=== PATIENT | female | born 1935 | race Caucasian/White ===

== ENCOUNTER 2022-05-31 12:03 | Emergency (ER) | payer OTHER ==
[~2022-05-31] VITALS: Ht 160 cm; Wt 40.4 kg
--- NOTE | 2022-05-31 12:05 | NUR ---
87/F BIBA from [facility] [place] for SOB and cough prior to arrival. Per EMS, patient cyanotic and cough up "thick green sputum." Patient noted with SOB after coughing episode. Denies SOB at this time; SpO2 98% on 2L via NC by EMS. SpO2 triage 99% on room air. Patient denies chest pain, fever, chills, headache. night monitor and gown in place. Bed locked in lowest position, side rails x 1. PMH: HLD, HTN, dementia NKDA
--- NOTE | 2022-05-31 12:05 | NUR ---
BIBA to bed 10
[2022-05-31 12:12] VITALS: BP 115/59
--- NOTE | 2022-05-31 12:41 | NUR ---
RAD at bedside
[2022-05-31] MEDS ORDERED: levoFLOXacin 750 MG TAB PO ONE (13:40)
[2022-05-31] MEDS ORDERED: LEVO750T75 PO (13:44)
--- NOTE | 2022-05-31 14:02 | NUR ---
ETA for transportation back home 1730.
--- NOTE | 2022-05-31 14:13 | NUR ---
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 Bed locked in lowest position, side rails x 2 for patient safety. Patient noted with one coughing episode. NAD. SpO2 98% on room air.
--- NOTE | 2022-05-31 15:20 | NUR ---
Patient states dinner meal around this time; tuna salad sandwich provided per request. Patient sitting upright in bed. sugar mixer in place.
--- NOTE | 2022-05-31 16:35 | NUR ---
Patient with bowel movement; bedside commode placed and patient using commode at this time. Wipes provided.
[2022-05-31 16:56] VITALS: BP 103/71
--- NOTE | 2022-05-31 17:42 | NUR ---
Patient resting in position of comfort with ekg monitor in place. SpO2 98% on room air. Bed locked in lowest position, side rails x 2 for pt safety. All needs met.
--- NOTE | 2022-05-31 18:06 | NUR ---
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 ETA and status given
--- NOTE | 2022-05-31 18:17 | NUR ---
[employer] transportation at bedside.
--- NOTE | 2022-05-31 18:18 | NUR ---
Patient discharged with v/s stable. Written and verbal after care instructions given and explained for Healthcare-Associated Pneumonia. Patient alert, oriented and verbalized understanding of instructions. Carried with to correction. All questions addressed prior to discharge. ID band removed. Patient advised to follow up with PMD. Rx of Levofloxacin given. Patient educated on indication of medication including possible reaction and side effects. Opportunity to ask questions provided and answered. Copies of RAD results provided in packet.
== END 2022-05-31 18:18 ==
LOC: MED 12:03
DX: J18.9 Pneumonia, unspecified organism (principal); I10 Essential (primary) hypertension; E78.5 Hyperlipidemia, unspecified; F03.90 Unspecified dementia, unspecified severity, without behavioral disturbance, psychotic disturbance, mood disturbance, and anxiety; Z79.899 Other long term (current) drug therapy
CPT/HCPCS: 71045; 99283; Q0092

== ENCOUNTER 2023-11-22 14:46 | Inpatient (IN) | payer OTHER ==
[~2023-11-22] VITALS: Ht 162.6 cm; Wt 61.7 kg
[~2023-11-22 14:46] MED LIST: LEVO750T75 PO
[2023-11-22 14:59] VITALS: BP 102/74; PULSE 100; RESP 16; TEMP 98.5; O2SAT 98
[2023-11-22 16:15] LABS: BASOPHILS # (AUTO) 0.1 K/uL (0.00-0.22); BASOPHILS % (AUTO) 0.8 % (0.0-2.0); EOSINOPHILS # (AUTO) 0.4 K/uL (0-0.4); EOSINOPHILS % (AUTO) 3.8 % (0.0-4.0); HEMATOCRIT 39.9 % (36-48); LYMPHOCYTES # (AUTO) 2.4 K/uL (2.5-16.5); LYMPHOCYTES % (AUTO) 23.1 % (20.5-51.1); MEAN CORPUSCULAR HEMOGLOBIN 31 pg (27-31); MEAN CORPUSCULAR HGB CONC 33 g/dL (33-37); MEAN CORPUSCULAR VOLUME 95.1 fL (80-94); MONOCYTES # (AUTO) 0.9 K/uL (0.8-1.0); MONOCYTES % (AUTO) 8.6 % (1.7-9.3); NEUTROPHILS # (AUTO) 6.6 K/uL (1.8-7.7); NEUTROPHILS % (AUTO) 63.7 % (42.2-75.2); PLATELET COUNT (AUTO) 231 K/uL (140-450); RED BLOOD CELL COUNT(AUTO) 4.19 MIL/uL (4.20-5.40); RED CELL DISTRIBUTION WIDTH 14.5 % (11.6-13.7); WHITE BLOOD COUNT (AUTO) 10.4 K/uL (4.8-10.8)
[2023-11-22 16:30] LABS: ANION GAP 12.8 (8-16); CALCIUM 9.7 mg/dL (8.5-10.1); CARBON DIOXIDE 26.1 mmol/L (21-32); CHLORIDE 105 mmol/L (98-107); CREATININE 0.7 mg/dL (0.6-1.3); GLUCOSE 112 mg/dL (74-106); POTASSIUM 3.9 mmol/L (3.5-5.1); SODIUM SERUM 140 mmol/L (136-145); UREA NITROGEN, BLOOD 20 mg/dL (7-18)
[2023-11-22 16:38] LABS: CREATINE KINASE, TOTAL 44 U/L (26-192)
[2023-11-22] MEDS: NACL 0.9% 1,000 ML IV ONE (16:41)
[2023-11-22] MEDS ORDERED: guaiFENesin DM 200/20 MG-10 ML 10 ML UDC PO PRN (17:35)
[2023-11-22] MEDS ORDERED: DOCUSATE SODIUM 100 MG GELCAP PO PRN (17:35)
[2023-11-22] MEDS ORDERED: POTASSIUM CHLORIDE 10 MEQ TABER PO PRN (17:35)
[2023-11-22] MEDS ORDERED: ONDANSETRON 4 MG/2 ML VIAL IM/IVP PRN (17:35)
[2023-11-22] MEDS ORDERED: HYDROcodone/APAP 7.5/325 MG 1 TAB PO PRN (17:35)
[2023-11-22] MEDS ORDERED: ACETAMINOPHEN 325 MG TAB PO PRN (17:35)
[2023-11-22] MEDS ORDERED: ZOLPIDEM 5 MG TAB PO PRN (17:35)
[2023-11-22] MEDS ORDERED: AZITHROMYCIN 500 MG INJ VIAL IV ONE (17:56)
[2023-11-22] MEDS ORDERED: cefTRIAXone 1,000 MG VIAL ONE (17:57)
[2023-11-22] MEDS: NACL 0.9% 1,000 ML IV SCH (18:27)
[2023-11-22] MEDS ORDERED: METO50TE63 PO (18:57)
[2023-11-22] MEDS ORDERED: MEGE400O15 PO (18:57)
[2023-11-22] MEDS ORDERED: ATOR20TA40 PO (18:57)
[2023-11-22] MEDS: AZITHROMYCIN 500 MG in DEXTROSE 5% 250 ML IV ONE (18:58)
[2023-11-22 19:14] LABS: APPEARANCE,URINE SL CLOUDY (CLEAR); BILIRUBIN,URINE NEGATIVE (NEGATIVE); BLOOD, URINE 3+ (NEGATIVE); LEUKOCYTE ESTERASE ,URINE 1+ (NEGATIVE); NITRITE, URINE NEGATIVE (NEGATIVE); PROTEIN,URINE NEGATIVE (NEGATIVE); UGLUCOSE NEGATIVE (NEGATIVE); UROBILINOGEN,URINE 0.2 EU/dL (0.2 - 1)
[2023-11-22 19:15] LABS: COLOR,URINE AMBER (YELLOW)
[2023-11-22 19:24] LABS: RBC,URINE 20-50 /HPF (0-5)
[2023-11-22 19:26] LABS: BACTERIA,URINE FEW /HPF (None Seen); SQUAMOUS EPITHELIAL CELL,UR 0-3 (FEW) /LPF (0-3 (FEW))
[2023-11-22 21:00] VITALS: BP 134/63; PULSE 97; RESP 20; TEMP 98.4; O2SAT 96
[2023-11-23 04:00] VITALS: BP 106/69; PULSE 97; RESP 20; TEMP 97.8; O2SAT 98
[2023-11-23 05:51] LABS: BASOPHILS # (AUTO) 0.1 K/uL (0.00-0.22); BASOPHILS % (AUTO) 0.8 % (0.0-2.0); EOSINOPHILS # (AUTO) 0.3 K/uL (0-0.4); EOSINOPHILS % (AUTO) 3.7 % (0.0-4.0); HEMATOCRIT 36.8 % (36-48); HEMOGLOBIN 12.6 g/dL (12.0-16.0); LYMPHOCYTES # (AUTO) 2.2 K/uL (2.5-16.5); LYMPHOCYTES % (AUTO) 25.4 % (20.5-51.1); MEAN CORPUSCULAR HEMOGLOBIN 32 pg (27-31); MEAN CORPUSCULAR HGB CONC 34 g/dL (33-37); MEAN CORPUSCULAR VOLUME 93.4 fL (80-94); MONOCYTES # (AUTO) 0.7 K/uL (0.8-1.0); MONOCYTES % (AUTO) 7.9 % (1.7-9.3); NEUTROPHILS # (AUTO) 5.3 K/uL (1.8-7.7); NEUTROPHILS % (AUTO) 62.2 % (42.2-75.2); PLATELET COUNT (AUTO) 240 K/uL (140-450); RED BLOOD CELL COUNT(AUTO) 3.94 MIL/uL (4.20-5.40); RED CELL DISTRIBUTION WIDTH 13.9 % (11.6-13.7); WHITE BLOOD COUNT (AUTO) 8.6 K/uL (4.8-10.8)
[2023-11-23 07:44] LABS: ALANINE AMINOTRANSFERASE 24 U/L (12-78); ALBUMIN 2.8 g/dL (3.4-5.0); ALKALINE PHOSPHATASE 69 U/L (50-136); ANION GAP 14.1 (8-16); ASPARTATE AMINOTRANSFERASE 17 U/L (15-37); CALCIUM 8.8 mg/dL (8.5-10.1); CARBON DIOXIDE 22.9 mmol/L (21-32); CHLORIDE 107 mmol/L (98-107); CREATININE 0.6 mg/dL (0.6-1.3); GLUCOSE 92 mg/dL (74-106); SODIUM SERUM 140 mmol/L (136-145); TOTAL BILIRUBIN 0.4 mg/dL (0.0-1.0); TOTAL PROTEIN, SERUM 6.4 g/dL (6.4-8.2); UREA NITROGEN, BLOOD 13 mg/dL (7-18)
[2023-11-23 08:00] VITALS: BP 134/65; PULSE 90; RESP 16; TEMP 98; O2SAT 100
[2023-11-23] MEDS: PANTOPRAZOLE 40 MG TABEC PO SCH (08:39)
[2023-11-23 16:00] VITALS: BP 110/85; PULSE 94; RESP 16; TEMP 98.5; O2SAT 98
[2023-11-23 20:00] VITALS: BP 113/58; PULSE 107; RESP 16; TEMP 98; TEMP 98.8; O2SAT 97
[2023-11-24 04:00] VITALS: BP 100/64; PULSE 90; RESP 18; TEMP 97.1; O2SAT 96
[2023-11-24 05:41] LABS: BASOPHILS % (AUTO) 0.5 % (0.0-2.0); EOSINOPHILS # (AUTO) 0.4 K/uL (0-0.4); HEMATOCRIT 35.9 % (36-48); LYMPHOCYTES # (AUTO) 2.2 K/uL (2.5-16.5); MEAN CORPUSCULAR HEMOGLOBIN 31 pg (27-31); MEAN CORPUSCULAR HGB CONC 34 g/dL (33-37); MEAN CORPUSCULAR VOLUME 93.6 fL (80-94); MONOCYTES # (AUTO) 0.7 K/uL (0.8-1.0); NEUTROPHILS # (AUTO) 4.4 K/uL (1.8-7.7); NEUTROPHILS % (AUTO) 57.5 % (42.2-75.2); PLATELET COUNT (AUTO) 228 K/uL (140-450); RED BLOOD CELL COUNT(AUTO) 3.83 MIL/uL (4.20-5.40); RED CELL DISTRIBUTION WIDTH 13.9 % (11.6-13.7); WHITE BLOOD COUNT (AUTO) 7.7 K/uL (4.8-10.8)
[2023-11-24 06:33] LABS: ALANINE AMINOTRANSFERASE 21 U/L (12-78); ALBUMIN 2.6 g/dL (3.4-5.0); ALKALINE PHOSPHATASE 63 U/L (50-136); ANION GAP 14.9 (8-16); ASPARTATE AMINOTRANSFERASE 18 U/L (15-37); CALCIUM 8.7 mg/dL (8.5-10.1); CARBON DIOXIDE 20.9 mmol/L (21-32); CHLORIDE 109 mmol/L (98-107); CREATININE 0.7 mg/dL (0.6-1.3); GLUCOSE 97 mg/dL (74-106); POTASSIUM 3.8 mmol/L (3.5-5.1); SODIUM SERUM 141 mmol/L (136-145); TOTAL BILIRUBIN 0.3 mg/dL (0.0-1.0); TOTAL PROTEIN, SERUM 6.2 g/dL (6.4-8.2); UREA NITROGEN, BLOOD 14 mg/dL (7-18)
[2023-11-24 08:00] VITALS: PULSE 91; RESP 19; TEMP 97.9; O2SAT 99
[2023-11-24] MEDS: METOPROLOL SUCCINATE 50 MG TABER PO SCH (08:51)
[2023-11-24] MEDS: ATORVASTATIN 20 MG TAB PO SCH (08:51)
[2023-11-24 16:00] VITALS: BP 139/64; PULSE 91; RESP 19; TEMP 98.2; O2SAT 99
[2023-11-24 20:00] VITALS: BP 110/66; PULSE 92; RESP 20; TEMP 97.9; O2SAT 97; O2SAT 99
[2023-11-25 04:00] VITALS: BP 110/82; PULSE 88; RESP 19; TEMP 97.9; O2SAT 97
[2023-11-25 06:42] LABS: BASOPHILS # (AUTO) 0.1 K/uL (0.00-0.22); BASOPHILS % (AUTO) 0.7 % (0.0-2.0); EOSINOPHILS # (AUTO) 0.4 K/uL (0-0.4); EOSINOPHILS % (AUTO) 4.6 % (0.0-4.0); HEMATOCRIT 34.6 % (36-48); HEMOGLOBIN 11.7 g/dL (12.0-16.0); LYMPHOCYTES # (AUTO) 2.4 K/uL (2.5-16.5); LYMPHOCYTES % (AUTO) 29.7 % (20.5-51.1); MEAN CORPUSCULAR HEMOGLOBIN 32 pg (27-31); MEAN CORPUSCULAR HGB CONC 34 g/dL (33-37); MEAN CORPUSCULAR VOLUME 94.2 fL (80-94); MONOCYTES # (AUTO) 0.8 K/uL (0.8-1.0); MONOCYTES % (AUTO) 10.5 % (1.7-9.3); NEUTROPHILS # (AUTO) 4.3 K/uL (1.8-7.7); NEUTROPHILS % (AUTO) 54.5 % (42.2-75.2); PLATELET COUNT (AUTO) 201 K/uL (140-450); RED BLOOD CELL COUNT(AUTO) 3.68 MIL/uL (4.20-5.40); WHITE BLOOD COUNT (AUTO) 7.9 K/uL (4.8-10.8)
[2023-11-25 07:54] LABS: ALANINE AMINOTRANSFERASE 19 U/L (12-78); ALBUMIN 2.6 g/dL (3.4-5.0); ALKALINE PHOSPHATASE 61 U/L (50-136); ANION GAP 14.1 (8-16); ASPARTATE AMINOTRANSFERASE 20 U/L (15-37); CARBON DIOXIDE 20.6 mmol/L (21-32); CHLORIDE 109 mmol/L (98-107); GLUCOSE 96 mg/dL (74-106); POTASSIUM 3.7 mmol/L (3.5-5.1); SODIUM SERUM 140 mmol/L (136-145); TOTAL BILIRUBIN 0.3 mg/dL (0.0-1.0); UREA NITROGEN, BLOOD 17 mg/dL (7-18)
[2023-11-25 08:00] VITALS: PULSE 95; RESP 19; O2SAT 97
[2023-11-25 09:22] LABS: CALCIUM 8.8 mg/dL (8.5-10.1); CREATININE 0.7 mg/dL (0.6-1.3)
[2023-11-25 16:00] VITALS: BP_SYST 100; BP_SYST 106; BP_DIAS 73; PULSE 82; RESP 18; TEMP 98; O2SAT 96
[2023-11-25 20:00] VITALS: BP 147/75; PULSE 90; RESP 18; TEMP 97.5; O2SAT 98
[2023-11-26 04:00] VITALS: BP 153/79; PULSE 92; RESP 18; TEMP 97.1; O2SAT 98
[2023-11-26 05:47] LABS: BASOPHILS # (AUTO) 0.1 K/uL (0.00-0.22); BASOPHILS % (AUTO) 0.5 % (0.0-2.0); EOSINOPHILS # (AUTO) 0.4 K/uL (0-0.4); EOSINOPHILS % (AUTO) 3.5 % (0.0-4.0); HEMATOCRIT 35.2 % (36-48); HEMOGLOBIN 11.8 g/dL (12.0-16.0); LYMPHOCYTES # (AUTO) 2.3 K/uL (2.5-16.5); LYMPHOCYTES % (AUTO) 22.5 % (20.5-51.1); MEAN CORPUSCULAR HEMOGLOBIN 32 pg (27-31); MEAN CORPUSCULAR HGB CONC 34 g/dL (33-37); MEAN CORPUSCULAR VOLUME 94.5 fL (80-94); MONOCYTES # (AUTO) 0.8 K/uL (0.8-1.0); NEUTROPHILS # (AUTO) 6.7 K/uL (1.8-7.7); NEUTROPHILS % (AUTO) 65.5 % (42.2-75.2); PLATELET COUNT (AUTO) 225 K/uL (140-450); RED BLOOD CELL COUNT(AUTO) 3.73 MIL/uL (4.20-5.40); RED CELL DISTRIBUTION WIDTH 13.9 % (11.6-13.7); WHITE BLOOD COUNT (AUTO) 10.2 K/uL (4.8-10.8)
[2023-11-26 06:18] LABS: ALANINE AMINOTRANSFERASE 26 U/L (12-78); ALBUMIN 2.7 g/dL (3.4-5.0); ALKALINE PHOSPHATASE 64 U/L (50-136); ANION GAP 14.2 (8-16); ASPARTATE AMINOTRANSFERASE 20 U/L (15-37); CARBON DIOXIDE 22.8 mmol/L (21-32); CHLORIDE 108 mmol/L (98-107); CREATININE 0.7 mg/dL (0.6-1.3); GLUCOSE 100 mg/dL (74-106); SODIUM SERUM 141 mmol/L (136-145); TOTAL BILIRUBIN 0.4 mg/dL (0.0-1.0); TOTAL PROTEIN, SERUM 6.3 g/dL (6.4-8.2); UREA NITROGEN, BLOOD 16 mg/dL (7-18)
[2023-11-26 08:15] VITALS: TEMP 96.8
[2023-11-26 08:16] VITALS: PULSE 86; RESP 20; O2SAT 99
[2023-11-26 15:23] VITALS: BP 127/76; PULSE 68; RESP 20; TEMP 97.2
== END 2023-11-26 16:30 | DRG 640 ==
LOC: MED 14:46 → MMU 17:33 → MTU 18:22
PROVIDERS: ADMIT Student in an Organized Health Care Education/Training Program; ATTEND Student in an Organized Health Care Education/Training Program
DX: R62.7 Adult failure to thrive (principal); E43 Unspecified severe protein-calorie malnutrition; N39.0 Urinary tract infection, site not specified; I10 Essential (primary) hypertension; E78.5 Hyperlipidemia, unspecified; F03.C0 Unspecified dementia, severe, without behavioral disturbance, psychotic disturbance, mood disturbance, and anxiety; Z68.23 Body mass index [BMI] 23.0-23.9, adult; Z79.899 Other long term (current) drug therapy
CPT/HCPCS: 36415; 70450; 71045; 80048; 80053; 81001; 82550; 82948; 83605; 84484; 85025; 87040; 87081; 87086; 93005; 96361; 96365; 96367; 97110; 97112; 97530; 99285; J0456; J0696; J7060